=== PATIENT | female | born 1930 | race Two or more races ===

== ENCOUNTER → 2017-05-18 | Outpatient (CLI) | payer OTHER ==
[2016-03-29 16:39] VITALS: BP 177/89
[~2017-05-18] MED LIST: TRAM-48 PO
--- NOTE | 2017-05-18 16:47 | RAD ---
Limited abdomen ultrasound study of the right upper quadrant History: Right upper quadrant abdominal pain. Findings: The pancreas and IVC and aorta are partially obscured due to overlying bowel gas. Segments of the aorta that are visualized are not aneurysmal. The liver measures 14.8 cm in length. There is attenuation of sound throughout the liver which may be seen with fatty infiltration of the liver. This decreases the sensitivity of sonography to detect focal hepatic lesions. No focal hepatic mass is seen otherwise. The gallbladder is normal and no gallstones are seen. The extra hepatic bile duct measures 5.2 mm in caliber which is normal. The length of the right kidney is 10.1 cm. The right kidney is not well visualized but no hydronephrosis is seen on this side. IMPRESSION: Fatty infiltration of the liver. Normal sonographic evaluation of the gallbladder.
== END | disposition home or self-care (01) ==
LOC: US 15:54
PROVIDERS: ATTEND Family Medicine
DX: K76.0 Fatty (change of) liver, not elsewhere classified (principal)
CPT/HCPCS: 76705

== ENCOUNTER 2017-11-19 16:43 | Emergency (ER) | payer SELFPAY, OTHER | END 2017-11-19 19:08 | disposition home or self-care (01) | LOC: ER 16:43 | DX: S00.03XA Contusion of scalp, initial encounter (principal); G89.29 Other chronic pain; M25.569 Pain in unspecified knee; I10 Essential (primary) hypertension; X58.XXXA Exposure to other specified factors, initial encounter; Y93.89 Activity, other specified; Y92.89 Other specified places as the place of occurrence of the external cause; Y99.8 Other external cause status | CPT/HCPCS: 70450; 70486; 72125; 99284 ==